=== PATIENT | male | born 1940 | race Caucasian/White ===

== ENCOUNTER 2017-02-01 15:14 | Outpatient (CLI) | payer MEDICARE, OTHER ==
[2016-06-04 22:53] VITALS: BP 157/81
[2017-02-01 15:31] LABS: BASOPHILS % 0.2 (0.0-1.5); EOSINOPHILS % 1.8 % (0.0-6.8); MEAN CORPUSCULAR VOLUME 90.8 fl (80.0-100.0); MONOCYTES % 5.2 % (0.0-11.0); NEUTROPHILS # 7.1 # k/uL (1.4-7.7)
[2017-02-01 15:58] LABS: eGFR (African) > 60; eGFR (Non-African) > 60
[2017-02-02 03:21] LABS: T3-UPTAKE 35.8 % (25.4-41.2)
== END 2017-02-01 15:15 ==
LOC: LAB 15:14
PROVIDERS: ATTEND Family Medicine
DX: I10 Essential (primary) hypertension (principal); C61 Malignant neoplasm of prostate; R53.82 Chronic fatigue, unspecified; E78.00 Pure hypercholesterolemia, unspecified
CPT/HCPCS: 36415; 80053; 80061; 84436; 84479; 85025

== ENCOUNTER 2017-02-16 08:55 | Outpatient (CLI) | payer MEDICARE, OTHER ==
[2016-06-04 22:53] VITALS: BP 157/81
== END 2017-02-16 08:56 ==
LOC: LAB 08:55
PROVIDERS: ATTEND Family Medicine
DX: R73.9 Hyperglycemia, unspecified (principal)
CPT/HCPCS: 36415; 83036

== ENCOUNTER 2017-02-17 07:40 | Outpatient (CLI) | payer MEDICARE, OTHER ==
[2016-06-04 22:53] VITALS: BP 157/81
--- NOTE | 2017-02-17 15:00 | Diagnostic Imaging Report ---
KRISH SANTOS [facility] [address] [facility].[address] [id number] Report Submission Date: Feb 17, 2017 2:58:22 PM CDT Patient Study Name: HARLEY WESTFALL Date: Feb 17, 2017 9:24:51 AM CDT Modality Type: CT\SR Gender: M Description: CT ABD & PELVIS W/ CON : 36 Institution: [facility] Physician: KRISH SANTOS Examination: CT Abdomen/pelvis History: Weight loss Comparison exams: None available Technique: CT Abdomen/pelvis with IV protocol. Findings: Liver demonstrates diffuse low attenuation. Mottled enhancement pattern. Cyst within the left hepatic lobe measuring 2.4 cm. Air within the intrahepatic biliary tree. Gall bladder margin appears to be slightly thickened with peripheral enhancement. Air within the fundal region of the gallbladder. Air within the common bile duct biliary stent traversing through the head of the pancreas. Pancreatic head demonstrates a heterogeneous low density region with slight ill defined margins. Approximately diameter of 2.7 cm. Dilation of the intra pancreatic duct to 7 mm. Kidneys demonstrates large cysts bilaterally: largest on the right measures 3. 3 cm, largest on the left measures 3.1 cm. No suspicious calcifications. No identifiable calcification involving the ureters in the course through the abdomen and pelvis. Adrenal glands not enlarged. Atherosclerotic disease involving the abdominal aorta no aneurysm. No periaortic pathologic adenopathy. Contrast within the small bowel. Stool throughout the large bowel limiting sensitivity. Sigmoid diverticula. Supra pelvic anterior abdominal hernia with small bowel involvement. No proximal dilation. Cecum/terminal ileum demonstrates significant thickening both the large and small bowel/terminal ileal region. Surgical changes in the region of the prostate. Loops of small bowel within the left mid abdomen appear to be prominent with air fluid levels. Osseous structures demonstrate degenerative changes. Healed left inferior pubic rami fracture. Lumbar degenerative changes involving the facets. Lung bases demonstrate parenchymal scarring and atelectasis. No posterior fusion. Impression: Pancreatic head mass: Pancreatic carcinoma. Correlation with any previous exams highly recommended to determine degree of change. Biliary stent traversing the pancreatic head. Air within the gallbladder and intrahepatic ductal system. Thickening and increased enhancement involving the gallbladder. Associated mottled enhancement of the liver. Possible secondary involvement from the pancreatic carcinoma. Significant thickening and inflammatory changes involving the cecum/terminal ileal region. Could represent a co morbid inflammatory bowel process. Correlate clinically. Loops of small bowel within the left mid abdomen appear to be prominent with air fluid levels: Mild ileus/enteritis. Lower supra pelvic abdominal wall hernia with bowel involvement. No proximal bowel obstruction. Sigmoid diverticulosis. No evidence for acute diverticulitis. When old outside films become available, comparison is highly recommended to determine degree of interval change. Ordering facility was made aware of the limitations on dictating this exam without priors examinations. Electronically signed on Feb 17, 2017 2:58:22 PM CDT by: Axel HANSEN
== END 2017-02-17 07:42 ==
LOC: RAD 07:40
PROVIDERS: ATTEND Family Medicine
DX: R10.32 Left lower quadrant pain (principal)
CPT/HCPCS: 74177; Q9966; A9698